=== PATIENT | female | born 1990 | race African-American/Black ===

== ENCOUNTER 2018-09-21 14:55 | Emergency (ER) | payer OTHER, SELFPAY ==
[2018-09-21] MEDS ORDERED: Ibuprofen 800 MG TAB ONE (15:54)
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
== END 2018-09-21 16:50 | disposition home or self-care (01) ==
LOC: ERS 14:55
DX: S40.022A Contusion of left upper arm, initial encounter (principal); V43.52XA Car driver injured in collision with other type car in traffic accident, initial encounter

== ENCOUNTER 2021-03-01 17:29 | Emergency (ER) | payer OTHER, SELFPAY ==
[2021-03-01] MEDS ORDERED: Acetaminophen 325 MG TAB ONE (18:11)
== END 2021-03-01 20:08 | disposition home or self-care (01) ==
LOC: ERS 17:29
DX: S00.83XA Contusion of other part of head, initial encounter (principal); S80.01XA Contusion of right knee, initial encounter; M54.2 Cervicalgia; V43.52XA Car driver injured in collision with other type car in traffic accident, initial encounter

== ENCOUNTER 2021-09-21 07:55 | Observation (INO) | payer OTHER ==
[2021-09-21 09:13] LABS: #Basophils 0.1 thou/uL (0.0-0.2); #Eosinphils 0.1 thou/uL (0.0-0.7); #Lymphocytes 3.2 thou/uL (1.20-3.40); #Monocytes 0.3 thou/uL (0.11-0.59); #Neutrophils 6.8 thou/uL (1.40-6.50); %Basophils 0.8 % (0.0-1.0); %Lymphocytes 30.7 % (21.0-51.0); %Monocytes 2.8 % (0.0-10.0); %Neutrophils 64.7 % (42.0-75.0); Hemoglobin 5.2 g/dL (12.0-16.0); Mean Corpuscular HGB CONC 30.3 g/dL (32.0-36.0); Mean Corpuscular Hemoglobin 18.8 pg (27.0-31.0); Mean Corpuscular Volume 62.2 fL (78.0-98.0); Mean Platelet Volume 5.8 fL (7.4-10.4); Platelet Count 270 thou/uL (130-400); RBC Distribution Width 19.4 % (11.5-14.5); Red Blood Cell (RBC) Count 2.74 mill/uL (4.20-5.40); White Blood Cell (WBC) Count 10.5 thou/uL (4.8-10.8)
[2021-09-21 09:17] LABS: BHCG - Serum Negative (NEGATIVE); Pregs Control Background? CLEAR/WHITE (CLR/WHITE); Pregs Control Bar Appear? YES (CONTROL BAR)
[2021-09-21 09:26] LABS: ALT (SGPT) 18 U/L (8-55); AST (SGOT) 18 U/L (5-34); Albumin 3.3 g/dL (3.5-5.0); Alkaline Phosphatase 72 U/L (40-110); Anion Gap 11 mmol/L (10-20); BUN (Urea Nitrogen) 8 mg/dL (7.0-18.7); Bilirubin, Total 0.2 mg/dL (0.2-1.2); Calc. Creatinine Clearance 0 mL/min (70-130); Calcium 8.6 mg/dL (7.8-10.44); Carbon Dioxide 26 mmol/L (22-29); Chloride 106 mmol/L (98-107); Globulin 3.2 g/dL (2.4-3.5); Glucose 153 mg/dL (70-105); Potassium 3.3 mmol/L (3.5-5.1); Protein, Total 6.5 g/dL (6.0-8.3); Sodium 140 mmol/L (136-145)
[2021-09-21 09:29] LABS: Hypochromia MODERATE=16-30 cells (100X) (0-5/hpf); MDiff Complete? YES; Microcytosis MODERATE=15-30 cells (100X) (0-5/hpf); Platelet Morphology Comment Appears Adequate; Polychromasia SLIGHT = 2-3 cells (100X) (0-2/hpf); Reflex for Review?? YES; Target Cells SLIGHT = 2-5 cells (100X) (0-1/hpf); Tear Drops SLIGHT = 2-5 cells (100X) (0-1/hpf)
[2021-09-21] MEDS ORDERED: Ondansetron ODT 4 MG TAB SL PRN (12:30)
[2021-09-21] MEDS ORDERED: Acetaminophen 325 MG TAB PO PRN (12:30)
[2021-09-21] MEDS ORDERED: Ondansetron PF 4 MG/2 ML Vial IVP PRN (12:30)
[2021-09-21 13:10] VITALS: BMI 36.8
[2021-09-21 14:30] LABS: Hemoglobin A1c 5.1 % (4.0-6.0)
[2021-09-21 14:35] LABS: INR-International Normal Ratio 0.9; Prothrombin Time 12.6 sec (12.0-14.7)
[2021-09-21 14:36] LABS: PTT 24.2 sec (22.9-36.1)
[2021-09-21 14:39] LABS: Cardiac Risk 3.5 (Less than 4.5)
[2021-09-21 14:58] LABS: Ferritin 2.45 ng/mL (10-291)
[2021-09-21 14:59] LABS: Thyroid Stimulating Hormone 1.9731 uIU/mL (0.35-4.94)
[2021-09-21 15:00] LABS: Luteinizing Hormone 3.97 mIU/mL (See Ranges)
[2021-09-21] MEDS: Ibuprofen 800 MG TAB PO SCH ×3 (15:33→22:30)
[2021-09-21] MEDS ORDERED: Prochlorperazine Maleate 5 MG TAB PO SCH (17:23)
[2021-09-21 22:41] LABS: Iron 9 ug/dL (50-170); Iron Binding Capacity, Total 495 mcg/dL (265-497)
[2021-09-22 05:00] LABS: Anion Gap 9 mmol/L (10-20); BUN (Urea Nitrogen) 7 mg/dL (7.0-18.7); Calc. Creatinine Clearance 211 mL/min (70-130); Calcium 8.6 mg/dL (7.8-10.44); Carbon Dioxide 24 mmol/L (22-29); Chloride 108 mmol/L (98-107); Glucose 118 mg/dL (70-105); Potassium 3.7 mmol/L (3.5-5.1); Sodium 137 mmol/L (136-145)
[2021-09-22] MEDS: Ibuprofen 800 MG TAB PO SCH ×2 (05:15→15:05)
[2021-09-22 06:23] LABS: #Eosinphils 0.2 thou/uL (0.0-0.7); #Monocytes 0.4 thou/uL (0.11-0.59); #Neutrophils 7.3 thou/uL (1.40-6.50); %Basophils 0.4 % (0.0-1.0); %Eosinophils 1.4 % (0.0-10.0); %Lymphocytes 27.4 % (21.0-51.0); %Monocytes 3.7 % (0.0-10.0); %Neutrophils 67.1 % (42.0-75.0); Anisocytosis SLIGHT = 6-15 cells (100X) (0-5/hpf); Hemoglobin 8.6 g/dL (12.0-16.0); Hypochromia SLIGHT = 6-15 cells (100X) (0-5/hpf); MDiff Complete? YES; Mean Corpuscular Hemoglobin 23.4 pg (27.0-31.0); Mean Corpuscular Volume 70.9 fL (78.0-98.0); Mean Platelet Volume 6.4 fL (7.4-10.4); Platelet Count 260 thou/uL (130-400); RBC Distribution Width 23.8 % (11.5-14.5); Red Blood Cell (RBC) Count 3.68 mill/uL (4.20-5.40); White Blood Cell (WBC) Count 10.9 thou/uL (4.8-10.8)
[2021-09-22] MEDS ORDERED: Iron, Sodium Ferric Gluconate 125 MG in Sodium Chloride 0.9% 100 ML IVPB SCH (10:30)
[2021-09-22] MEDS ORDERED: diphenhydrAMINE 25 MG CAP PO SCH (10:30)
[2021-09-22 16:18] LABS: SARS-CoV-2 PCR by NAA Not Detected (NotDetected)
[2021-09-22 16:48] VITALS: BP 108/61; TEMP 98.2
[2021-09-24 11:39] LABS: Hemoglobin A2 1.5 % (1.8-3.2); Hemoglobin F 0 % (0.0-2.0); Interpretation Note: (.)
== END 2021-09-22 18:03 | disposition home or self-care (01) ==
LOC: ERS 07:55 → T4-B 10:46
PROVIDERS: ADMIT Emergency Medicine; ATTEND Emergency Medicine
DX: N93.9 Abnormal uterine and vaginal bleeding, unspecified (principal); D50.9 Iron deficiency anemia, unspecified; E88.81 Metabolic syndrome and other insulin resistance; Z20.822 Contact with and (suspected) exposure to COVID-19; Z79.890 Hormone replacement therapy; Z98.890 Other specified postprocedural states
CPT/HCPCS: 36415; 36430; 76856; 80048; 80053; 80061; 81241; 82670; 82728; 83001; 83002; 83021; 83036; 83540; 83550; 84146; 84443; 84703; 85025; 85060; 85245; 85610; 85730; 86850; 86900; 86901; 96374; G0378; J2916; J3490; P9016; Q0164; U0003; U0005

== ENCOUNTER 2022-02-21 08:46 | Day surgery (SDC) | payer OTHER ==
[~2022-02-21 08:46] MED LIST: Acetaminophen 500 MG TAB PO SCH; Ferumoxytol (NON ERSD) 510 MG in Sodium Chloride 0.9% 250 ML 150 ML IVPB SCH
[2022-02-21] MEDS ORDERED: Acetaminophen 500 MG TAB ONE ×2 (08:53→08:54)
[2022-02-21 10:25] VITALS: BP 106/59; TEMP 98.4
== END 2022-02-21 10:25 | disposition home or self-care (01) ==
LOC: ONC/OP 08:46
PROVIDERS: ATTEND Student in an Organized Health Care Education/Training Program
DX: D50.9 Iron deficiency anemia, unspecified (principal)
CPT/HCPCS: 96365; J7050; Q0138

== ENCOUNTER 2022-03-04 15:09 | Outpatient (CLI) | payer OTHER | END 2022-03-04 15:10 | disposition home or self-care (01) | LOC: DTY/OP 15:09 | PROVIDERS: ATTEND Surgery | DX: E66.01 Morbid (severe) obesity due to excess calories (principal) | CPT/HCPCS: 97802 ==

== ENCOUNTER 2022-09-26 07:15 | Emergency (ER) | payer OTHER ==
[2022-09-26 08:15] LABS: BHCG - Serum Negative (NEGATIVE); Pregs Control Background? CLEAR/WHITE (CLR/WHITE); Pregs Control Bar Appear? YES (CONTROL BAR)
[2022-09-26 08:20] LABS: #Basophils 0.1 thou/uL (0.0-0.2); #Eosinphils 0.1 thou/uL (0.0-0.7); #Lymphocytes 2.9 thou/uL (1.20-3.40); #Monocytes 0.5 thou/uL (0.11-0.59); #Neutrophils 6.1 thou/uL (1.40-6.50); %Basophils 0.7 % (0.0-1.0); %Eosinophils 1.1 % (0.0-10.0); %Lymphocytes 30.3 % (21.0-51.0); %Monocytes 4.9 % (0.0-10.0); Hemoglobin 9.3 g/dL (12.0-16.0); Mean Corpuscular HGB CONC 29.5 g/dL (32.0-36.0); Mean Corpuscular Hemoglobin 21.1 pg (27.0-31.0); Mean Corpuscular Volume 71.3 fl (78.0-98.0); Mean Platelet Volume 12.1 fL (7.4-10.4); Platelet Count 382 10x3/uL (130-400); RBC Distribution Width 22.7 % (11.5-14.5); Red Blood Cell (RBC) Count 4.43 mill/uL (4.20-5.40); White Blood Cell (WBC) Count 9.6 10x3/uL (4.8-10.8)
[2022-09-26 08:27] LABS: ALT (SGPT) 13 U/L (8-55); AST (SGOT) 14 U/L (5-34); Albumin 3.8 g/dL (3.5-5.0); Alkaline Phosphatase 73 U/L (40-110); Anion Gap 11 mmol/L (10-20); BUN (Urea Nitrogen) 12 mg/dL (7.0-18.7); Bilirubin, Total 0.5 mg/dL (0.2-1.2); Calc. Creatinine Clearance 0 mL/min (70-130); Calcium 8.9 mg/dL (7.8-10.44); Carbon Dioxide 23 mmol/L (22-29); Chloride 107 mmol/L (98-107); Estimated GFR 118; Globulin 3.6 g/dL (2.4-3.5); Glucose 102 mg/dL (70-105); Potassium 3.5 mmol/L (3.5-5.1); Protein, Total 7.4 g/dL (6.0-8.3); Sodium 137 mmol/L (136-145)
== END 2022-09-26 09:47 | disposition home or self-care (01) ==
LOC: ERS 07:15
DX: N92.0 Excessive and frequent menstruation with regular cycle (principal)
CPT/HCPCS: 36415; 80053; 84703; 85025; 86850; 86900; 86901; 99284

== ENCOUNTER 2022-10-01 14:02 | Outpatient (CLI) | payer OTHER | END 2022-10-01 14:03 | disposition home or self-care (01) | LOC: RAD 14:02 | PROVIDERS: ATTEND Internal Medicine Critical Care Medicine | DX: R06.00 Dyspnea, unspecified (principal) | CPT/HCPCS: 71046 ==

== ENCOUNTER 2023-07-09 05:28 | Emergency (ER) | payer OTHER ==
[2023-07-09] MEDS ORDERED: cefTRIAXone (ROCEPHIN) 500 MG VIAL ONE (05:57)
[2023-07-09] MEDS ORDERED: Lidocaine 1% MPF 2 ML VIAL ONE (05:59)
[2023-07-09 06:30] LABS: Bilirubin Negative (Negative); Blood, Urine 3+ (Negative); CAUTI Indications for Culture Dysuria,urgency,freq; Clarity Turbid (Clear); Glucose, Urine (Dipstick) Normal (Negative); Ketone, Urine Negative (Negative); Leukocyte 500 Leu/uL (Negative); Nitrite Negative (Negative); Protein, Urine (Dipstick) 70 mg/dL (Neg-Trace); RBC/HPF Greater than 50 HPF (0-3); Specific Gravity, Urine 1.021 (1.002-1.036); Squamous Epithelial 0-3 HPF (0-3); Urobilinogen Normal mg/dL (Less than 2); WBC/HPF Greater than 50 HPF (0-3); pH, Urine 5.5 (5.0-9.0)
[2023-07-09 06:31] LABS: Bacteria/HPF 1+ HPF (None Seen); Pregnancy Test - Urine (BHCG) Negative (Negative); Pregu Control Background? CLEAR/WHITE (CLR/WHITE); Pregu Control Bar Appear? YES (CONTROL BAR); Specific Gravity 1.021 (1.002-1.036); Urine Culture Reflex Yes Yes
[2023-07-09] MEDS ORDERED: Azithromycin 250 MG TAB ONE (06:36)
[2023-07-09] MEDS ORDERED: Ondansetron ODT 4 MG TAB ONE (06:36)
[2023-07-09 15:35] LABS: Chlamydia by PCR, Vaginal Swab Not Detected (NotDetected); GC by PCR, Vaginal Swab Not Detected (NotDetected); Tric.vaginalis PCR,Vaginal Sw Not Detected (NotDetected)
== END 2023-07-09 06:42 | disposition home or self-care (01) ==
LOC: ERS 05:28
DX: N39.0 Urinary tract infection, site not specified (principal); N76.0 Acute vaginitis; Z20.2 Contact with and (suspected) exposure to infections with a predominantly sexual mode of transmission
CPT/HCPCS: 81001; 81025; 87077; 87086; 87186; 87480; 87491; 87510; 87591; 87660; 87661; 96372; 99283; J0696; Q0162

== ENCOUNTER 2023-07-16 14:19 | Emergency (ER) | payer OTHER ==
[2023-07-16 15:02] LABS: #Basophils 0.1 thou/uL (0.0-0.2); #Eosinphils 0.1 thou/uL (0.0-0.7); #Monocytes 0.3 thou/uL (0.11-0.59); #Neutrophils 7.7 thou/uL (1.40-6.50); %Basophils 0.6 % (0.0-1.0); %Eosinophils 0.5 % (0.0-10.0); %Lymphocytes 18.4 % (21.0-51.0); %Monocytes 3.3 % (0.0-10.0); %Neutrophils 76.9 % (42.0-75.0); Hematocrit 18.8 % (36.0-47.0); Hemoglobin 4.9 g/dL (12.0-16.0); Mean Corpuscular HGB CONC 26.1 g/dL (32.0-36.0); Mean Corpuscular Hemoglobin 15.6 pg (27.0-31.0); Mean Corpuscular Volume 59.7 fl (78.0-98.0); Mean Platelet Volume 10.2 fL (7.4-10.4); Platelet Count 178 10x3/uL (130-400); RBC Distribution Width 20.6 % (11.5-14.5); Red Blood Cell (RBC) Count 3.15 mill/uL (4.20-5.40)
[2023-07-16 15:22] LABS: ALT (SGPT) 14 U/L (8-55); AST (SGOT) 19 U/L (5-34); Alkaline Phosphatase 85 U/L (40-110); Anion Gap 11 mmol/L (10-20); BUN (Urea Nitrogen) 10 mg/dL (7.0-18.7); Bilirubin, Total 0.6 mg/dL (0.2-1.2); Calc. Creatinine Clearance 0 mL/min (70-130); Calcium 8.9 mg/dL (7.8-10.44); Carbon Dioxide 27 mmol/L (22-29); Chloride 101 mmol/L (98-107); Estimated GFR 107; Globulin 3.4 g/dL (2.4-3.5); Glucose 148 mg/dL (70-105); Potassium 3.1 mmol/L (3.5-5.1); Protein, Total 7.4 g/dL (6.0-8.3); Sodium 136 mmol/L (136-145)
[2023-07-16 15:35] LABS: Anisocytosis SLIGHT = 6-15 cells HPF (0-5); CellaVision Operator ID LAB.MJL; Elliptocytes SLIGHT = 2-5 cells HPF (0-1); Hypochromia MODERATE=16-30 cells HPF (0-5); Microcytosis MODERATE=15-30 cells HPF (0-5); Ovalocytes SLIGHT = 2-5 cells HPF (0-1); Platelet Adequacy Comment Platelets Normal; Poikilocytosis MODERATE=16-30 cells HPF (0-5); Polychromasia MODERATE = 3-4 cells HPF (0-2); Reflex for Review?? YES; Schistocytes SLIGHT = 2-5 cells HPF (0-1); Target Cells SLIGHT = 2-5 cells HPF (0-1); Tear Drops SLIGHT = 2-5 cells HPF (0-1)
[2023-07-16 16:03] LABS: BHCG - Serum Negative (NEGATIVE); Pregs Control Background? CLEAR/WHITE (CLR/WHITE); Pregs Control Bar Appear? YES (CONTROL BAR)
[2023-07-16 16:08] LABS: Iron 16 ug/dL (50-170); Iron Binding Capacity, Total 555 mcg/dL (265-497)
[2023-07-16 22:20] LABS: Hematocrit 27.2 % (36.0-47.0)
[2023-07-16 22:41] LABS: Hemoglobin 8.1 g/dL (12.0-16.0)
[2023-07-16 22:42] LABS: Anion Gap 12 mmol/L (10-20); BUN (Urea Nitrogen) 9 mg/dL (7.0-18.7); Calc. Creatinine Clearance 0 mL/min (70-130); Carbon Dioxide 25 mmol/L (22-29); Chloride 103 mmol/L (98-107); Potassium 3.5 mmol/L (3.5-5.1); Sodium 136 mmol/L (136-145)
[2023-07-16 22:43] LABS: Calcium 8.6 mg/dL (7.8-10.44); Estimated GFR 117; Glucose 93 mg/dL (70-105)
== END 2023-07-17 01:22 | disposition home or self-care (01) ==
LOC: ERS 14:19
DX: D64.9 Anemia, unspecified (principal)
CPT/HCPCS: 36415; 36430; 80053; 83540; 83550; 84703; 85025; 85060; 86850; 86900; 86901; 99284; P9016

== ENCOUNTER 2023-10-01 19:08 | Emergency (ER) | payer OTHER, SELFPAY ==
[2023-10-01 19:28] LABS: Bacteria/HPF None Seen HPF (None Seen); Bilirubin Negative (Negative); Blood, Urine Negative (Negative); CAUTI Indications for Culture Dysuria,urgency,freq; Clarity Clear (Clear); Glucose, Urine (Dipstick) Normal (Negative); Ketone, Urine Negative (Negative); Leukocyte Negative Leu/uL (Negative); Nitrite Negative (Negative); Protein, Urine (Dipstick) 50 mg/dL (Neg-Trace); RBC/HPF 0-3 HPF (0-3); Specific Gravity, Urine 1.027 (1.002-1.036); WBC/HPF 0-3 HPF (0-3); pH, Urine 8.5 (5.0-9.0)
[2023-10-01 19:29] LABS: Pregnancy Test - Urine (BHCG) Negative (Negative); Pregu Control Background? CLEAR/WHITE (CLR/WHITE); Pregu Control Bar Appear? YES (CONTROL BAR); Specific Gravity 1.027 (1.002-1.036); Urine Culture Reflex No No
[2023-10-01] MEDS ORDERED: Azithromycin 250 MG TAB ONE (20:21)
[2023-10-01] MEDS ORDERED: Ondansetron ODT 4 MG TAB ONE (20:22)
[2023-10-01] MEDS ORDERED: cefTRIAXone (ROCEPHIN) 500 MG VIAL ONE (20:22)
[2023-10-01] MEDS ORDERED: Lidocaine 1% MPF 2 ML VIAL ONE (20:22)
[2023-10-02 00:57] LABS: Chlamydia by PCR, Vaginal Swab Not Detected (NotDetected); GC by PCR, Vaginal Swab Not Detected (NotDetected)
== END 2023-10-01 21:16 | disposition home or self-care (01) ==
LOC: ERS 19:08
DX: N93.8 Other specified abnormal uterine and vaginal bleeding (principal)
CPT/HCPCS: 81001; 81025; 87480; 87491; 87510; 87591; 87660; 96372; 99283; J0696; Q0162

== ENCOUNTER 2024-08-27 11:08 | Emergency (ER) | payer OTHER ==
[2024-08-27 12:07] LABS: #Basophils 0.08 10x3/uL (0.0-0.2); %Basophils 1.3 % (0.0-1.0); %Eosinophils 1.8 % (0.0-10.0); %Lymphocytes 29.8 % (21.0-51.0); %Monocytes 6.1 % (0.0-10.0); %Neutrophils 60.7 % (42.0-75.0); Hematocrit 27.3 % (36.0-47.0); Hemoglobin 7.4 g/dL (12.0-16.0); Mean Corpuscular HGB CONC 27.1 g/dL (32.0-36.0); Mean Corpuscular Hemoglobin 17.7 pg (27.0-31.0); Mean Corpuscular Volume 65.5 fL (78.0-98.0); Mean Platelet Volume 9.5 fL (7.4-10.4); Platelet Count 279 10x3/uL (130-400); RBC Distribution Width 20.8 % (11.5-14.5); Red Blood Cell (RBC) Count 4.17 mill/uL (4.20-5.40)
[2024-08-27] MEDS ORDERED: HYDROcodone/Acetaminophen 5/325 mg Tablet ONE (12:08)
[2024-08-27 12:13] LABS: BHCG - Serum Negative (NEGATIVE); Pregs Control Background? CLEAR/WHITE (CLR/WHITE); Pregs Control Bar Appear? YES (CONTROL BAR)
[2024-08-27 12:18] LABS: ALT (SGPT) 15 U/L (8-55); AST (SGOT) 23 U/L (5-34); Albumin 3.4 g/dL (3.5-5.0); Alkaline Phosphatase 73 U/L (40-110); Anion Gap 12 mmol/L (10-20); BUN (Urea Nitrogen) 10 mg/dL (7.0-18.7); Bilirubin, Total 0.4 mg/dL (0.2-1.2); Calc. Creatinine Clearance 0 mL/min (70-130); Calcium 8.9 mg/dL (7.8-10.44); Carbon Dioxide 25 mmol/L (22-29); Chloride 108 mmol/L (98-107); Estimated GFR 118; Globulin 4.2 g/dL (2.4-3.5); Glucose 75 mg/dL (70-105); Potassium 3.5 mmol/L (3.5-5.1); Protein, Total 7.6 g/dL (6.0-8.3); Sodium 141 mmol/L (136-145)
[2024-08-27] MEDS ORDERED: Iopamidol-370 76% 500 ML MDV (1 ML CHARGE) ONE (12:24)
[2024-08-27 12:51] LABS: Anisocytosis MODERATE=16-30 cells HPF (0-5); Hypochromia MODERATE=16-30 cells HPF (0-5); Microcytosis MODERATE=15-30 cells HPF (0-5); Platelet Adequacy Comment Platelets Normal; Polychromasia SLIGHT = 2-3 cells HPF (0-2); Schistocytes SLIGHT = 2-5 cells HPF (0-1); Target Cells SLIGHT = 2-5 cells HPF (0-1); Tear Drops SLIGHT = 2-5 cells HPF (0-1)
== END 2024-08-27 12:06 | disposition home or self-care (01) ==
LOC: ERS 11:08
DX: S09.90XA Unspecified injury of head, initial encounter (principal); S60.444A External constriction of right ring finger, initial encounter; S61.451A Open bite of right hand, initial encounter; Y04.1XXA Assault by human bite, initial encounter; Y04.8XXA Assault by other bodily force, initial encounter
CPT/HCPCS: 36415; 70450; 70486; 70498; 80053; 84703; 85025; Q9967

== ENCOUNTER 2024-10-14 18:31 | Emergency (ER) | payer OTHER ==
[2024-10-14] MEDS ORDERED: Ketorolac Tromethamine 30 MG (1 mL) VIAL ONE (19:24)
== END 2024-10-14 20:27 | disposition home or self-care (01) ==
LOC: ERS 18:31
DX: S80.11XA Contusion of right lower leg, initial encounter (principal); V03.00XA Pedestrian on foot injured in collision with car, pick-up truck or van in nontraffic accident, initial encounter; Y92.481 Parking lot as the place of occurrence of the external cause
CPT/HCPCS: 96372; 99283; J1885